=== PATIENT | female | born 1960 | race Two or more races ===

== ENCOUNTER 2021-04-08 11:05 | Emergency (ER) | payer OTHER ==
[~2021-04-08] VITALS: Ht 162.6 cm; Wt 57.6 kg
[2021-04-08] MEDS ORDERED: ESTRADIOL0.5 MG PO (11:25)
== END 2021-04-08 13:18 | disposition home or self-care (01) ==
LOC: ER 11:05
DX: S01.01XA Laceration without foreign body of scalp, initial encounter (principal); S06.0X0A Concussion without loss of consciousness, initial encounter; W20.8XXA Other cause of strike by thrown, projected or falling object, initial encounter; Y93.H3 Activity, building and construction; Y92.018 Other place in single-family (private) house as the place of occurrence of the external cause; Y99.8 Other external cause status

== ENCOUNTER 2021-04-19 08:34 | Emergency (ER) | payer OTHER ==
[~2021-04-19] VITALS: Ht 162.6 cm; Wt 57.6 kg
[~2021-04-19 08:34] MED LIST: ESTRADIOL0.5 MG PO
== END 2021-04-19 09:59 | disposition home or self-care (01) ==
LOC: ER 08:34
DX: Z48.02 Encounter for removal of sutures (principal)

== ENCOUNTER 2022-06-25 14:57 | Outpatient (CLI) | payer OTHER | END 2022-06-25 15:00 | disposition home or self-care (01) | LOC: EKG 14:57 | PROVIDERS: ATTEND Ophthalmology | DX: Z01.810 Encounter for preprocedural cardiovascular examination (principal) ==

== ENCOUNTER 2025-03-14 08:55 | Outpatient (CLI) | payer OTHER | END 2025-03-14 08:57 | disposition home or self-care (01) | LOC: RAD 08:55 | PROVIDERS: ATTEND Pathology Anatomic Pathology & Clinical Pathology | DX: K11.23 Chronic sialoadenitis (principal); R59.0 Localized enlarged lymph nodes ==